=== PATIENT | female | born 1995 | race Caucasian/White ===

== ENCOUNTER → 2016-12-17 | Outpatient (CLI) | payer OTHER ==
[~2016-12-17] MED LIST: AMPH20TA2 PO; CLR10 PO; MRC50 PO; RMCI IV; SPR28 PO
[2016-12-17 08:36] LABS: ALKALINE PHOSPHATASE 18 U/L (45-117); ALT/SGPT 13 U/L (12-78); AST/SGOT 9 U/L (15-37)
[2016-12-20 13:35] LABS: MICROSOMAL AB 3 IU/ML (<9); NORMETANEPHRINE PLASMA 86 pg/mL (<=148); TOTAL METANEPHRINE PLASMA 117 pg/mL (<=205)
== END | disposition home or self-care (01) ==
LOC: C.LAB 07:22
PROVIDERS: ATTEND Internal Medicine Endocrinology, Diabetes & Metabolism
DX: R23.2 Flushing (principal)

== ENCOUNTER → 2016-12-21 | Outpatient (CLI) | payer OTHER ==
[2016-12-23 13:31] LABS: 5-HIAA 1.4 mg/24 h (<=6.0)
== END | disposition home or self-care (01) ==
LOC: C.LABSPEC 08:04
PROVIDERS: ATTEND Internal Medicine Endocrinology, Diabetes & Metabolism
DX: R23.2 Flushing (principal)